=== PATIENT | male | born 1935 | race Hispanic/Latino ===

== ENCOUNTER 2017-08-22 05:50 | Inpatient (IN) | payer MEDICARE, BC ==
[2017-08-22] MEDS ORDERED: Sodium Chloride 0.9% 500 ML IV STA (06:03)
--- NOTE | 2017-08-22 06:07 | ED PDOC ---
Arrival/HPI <Po Mar - Last Filed: 08/22/17 17:07> <Jacobo Zambrano - Last Filed: 08/23/17 07:38> - General Time Seen by Provider: 08/22/17 05:52 - History of Present Illness Narrative History of Present Illness (Text): 08/22/17 06:04 81 yo male, hx of diverticulosis, copd, hyperlipidemia, presents with abdominal pain. pt states pain worse to b/l lower abdomen. pt states intermittent pain since yesterday which resolved after he took peptobismol. no fevers, no n/v/d, no urinary changes. no hematochezia, melena 08/22/17 06:06 (Jacobo Zambrano) Past Medical History - Provider Review Nursing Documentation Reviewed: Yes - Cardiac Hx Cardiac Disorders: Yes - Pulmonary Hx Respiratory Disorders: Yes Hx Asthma: Yes Hx Chronic Obstructive Pulmonary Disease (COPD): Yes - Neurological Hx Neurological Disorder: No - HEENT Hx HEENT Disorder: No - Renal Hx Renal Disorder: No - Endocrine/Metabolic Hx Endocrine Disorders: No - Hematological/Oncological Hx Blood Disorders: No - Integumentary Hx Dermatological Disorder: No - Musculoskeletal/Rheumatological Hx Musculoskeletal Disorders: Yes Hx Arthritis: Yes (right knee) Hx Back Pain: Yes - Gastrointestinal Hx Gastrointestinal Disorders: No - Genitourinary/Gynecological Hx Genitourinary Disorders: No - Psychiatric Hx Psychophysiologic Disorder: No Hx Substance Use: No - Surgical History Other/Comment: right knee <Jacobo Zambrano - Last Filed: 08/23/17 07:38> Family/Social History Family/Social History: No Known Family HX <Po Mar - Last Filed: 08/22/17 17:07> - Physician Review Nursing Documentation Reviewed: Yes Smoking Status: Former Smoker Hx Alcohol Use: Yes Frequency of alcohol use: Daily Hx Substance Use: No <Jacobo Zambrano - Last Filed: 08/23/17 07:38> Allergies/Home Meds <Po Mar - Last Filed: 08/22/17 17:07> <Jacobo Zambrano - Last Filed: 08/23/17 07:38> Allergies/Adverse Reactions: Allergies No Known Allergies Allergy (Verified 08/22/17 05:59) Home Medications: Home Meds Medication Instructions Recorded Confirmed Aspirin [Aspirin] 325 mg PO DAILY 04/15/16 08/22/17 Atorvastatin [Lipitor] 20 mg PO DAILY 04/15/16 08/22/17 Fluticasone/Salmeterol [Advair 1 each IH 08/22/17 250-50 Diskus] Multivit-Min/FA/Lycopen/Lutein 1 tab PO DAILY 08/22/17 08/22/17 [Centrum Silver Men Tablet] Review of Systems - Review of Systems Constitutional: Normal Eyes: Normal ENT: Normal Respiratory: Normal Cardiovascular: Normal Gastrointestinal: Abdominal Pain Genitourinary Male: Normal Musculoskeletal: Normal Skin: Normal Neurological: Normal Endocrine: Normal Hemo/Lymphatic: Normal Psychiatric: Normal <Jacobo Zambrano - Last Filed: 08/23/17 07:38> Physical Exam Temperature: Afebrile Blood Pressure: Normal Pulse: Regular Respiratory Rate: Normal Appearance: Positive for: Well-Appearing, Non-Toxic, Comfortable Pain Distress: None Mental Status: Positive for: Alert and Oriented X 3 - Systems Exam Head: Present: Atraumatic, Normocephalic Pupils: Present: PERRL Extroacular Muscles: Present: EOMI Conjunctiva: Present: Normal Mouth: Present: Moist Mucous Membranes Neck: Present: Normal Range of Motion Respiratory/Chest: Present: Clear to Auscultation, Good Air Exchange. No: Respiratory Distress, Accessory Muscle Use Cardiovascular: Present: Regular Rate and Rhythm, Normal S1, S2. No: Murmurs Abdomen: Present: Tenderness (mild, worse to llq), Normal Bowel Sounds. No: Distention, Peritoneal Signs, Rebound, Guarding Back: Present: Normal Inspection Upper Extremity: Present: Normal Inspection. No: Cyanosis, Edema Lower Extremity: Present: Normal Inspection. No: Edema Neurological: Present: GCS=15, CN II-XII Intact, Speech Normal Skin: Present: Warm, Dry, Normal Color. No: Rashes Psychiatric: Present: Alert, Oriented x 3, Normal Insight, Normal Concentration <Jacobo Zambrano - Last Filed: 08/23/17 07:38> Vital Signs Temp Pulse Pulse Resp BP Pulse Ox 08/22/17 12:07 98.2 F 96 H 16 139/70 96 08/22/17 12:04 96.0 F L 96 H 96 H 18 139/70 96 08/22/17 11:00 98 F 94 H 18 128/62 97 08/22/17 08:50 98.5 F 94 H 20 137/67 97 08/22/17 07:40 92 H 20 150/80 95 08/22/17 06:08 97.7 F 90 18 139/73 99 Medical Decision Making <AnanthAlek arevaloantionette Arriaga - Last Filed: 08/22/17 17:07> <Jacobo Zambrano - Last Filed: 08/23/17 07:38> ED Course and Treatment: 08/22/17 10:00 Progress Notes: 08/22/17 10:05 Patient's pain controlled. CT showed acute cholecystitis. Zosyn IV ordered. Ultrasound ordered. Spoke to Dr. Tate and he will accept the patient under his services. 08/22/17 10:10 Case discussed with surgical supply assistant Dr. Rios, who will come and evaluate the patient at bedside.and will inform Dr. Valdivia. I paged Dr. Gaxiola. As per Dr. Jaramillo he discussed case with Dr. Valdivia. ABD US: IMPRESSION: Fatty infiltration of the liver. Sludge in the gallbladder with mild wall thickening and pericholecystic fluid. Possible cholecystitis (ZaidPo Arriaga) 08/22/17 06:07 r/o diverticulitis, uti, colitis- labs imaging hydration reassess. pt declines any analgesia at this time. (Jacobo Zambrano) - Lab Interpretations Lab Results: 08/22/17 06:17 08/22/17 06:17 Lab Results 08/22/17 06:40: Direct Bilirubin 1.7 H 08/22/17 06:17: Sodium 139, Potassium 4.2, Chloride 105, Carbon Dioxide 26, Anion Gap 12, BUN 19, Creatinine 1.0, Est GFR ( Amer) > 60, Est GFR (Non- Af Amer) > 60, Random Glucose 171 H, Calcium 8.7, Total Bilirubin 2.7 H, AST 364 H, ALT 233 H, Alkaline Phosphatase 199 H, Total Protein 6.5, Albumin 3.8, Globulin 2.7, Albumin/Globulin Ratio 1.4, Lipase 33 08/22/17 06:17: PT 11.3, INR 1.03, APTT 24.5 L 08/22/17 06:17: WBC 8.9, RBC 4.59, Hgb 14.1, Hct 41.6 L, MCV 90.6, MCH 30.7, MCHC 33.9, RDW 13.8, Plt Count 168, MPV 9.9, Gran % 91.9 H, Lymph % (Auto) 5.6 L , [place] % (Auto) 2.0, Eos % (Auto) 0.4 L, Baso % (Auto) 0.1, Gran # 8.18 H, Lymph # 0.5 L, [place] # 0.2, Eos # 0.0, Baso # 0.01, Neutrophils % (Manual) 87 H, Band Neutrophils % 6 H, Lymphocytes % (Manual) 6 L, Monocytes % (Manual) 1, Platelet Evaluation Normal - RAD Interpretation Radiology Orders: 08/22/17 06:39 ABD & PELVIS IV CONTRAST ONLY [CT] Stat 08/22/17 09:01 ABDOMEN COMPLETE [US] Stat - Medication Orders Current Medication Orders: Metronidazole (Flagyl) 500 mg in 100 mls @ 100 mls/hr IVPB Q8 DENIZ PRN Reason: Protocol Last Admin: 08/23/17 05:35 Dose: 100 mls/hr eMAR Start Stop Document 08/23/17 05:35 [facility] (Rec: 08/23/17 05:36 [id number]) Intravenous Solution Start Date 08/23/17 Start Time 05:35 End Date 08/23/17 End time 06:35 Total Infusion Time 60 Ceftriaxone Sodium (Rocephin 1 Gram Ivpb) 1 gm in 100 mls @ 100 mls/hr IVPB DAILY [facility] PRN Reason: Protocol Last Admin: 08/22/17 12:31 Dose: 100 mls/hr eMAR Start Stop Document 08/22/17 12:31 LMN (Rec: 08/22/17 12:32 LMN [id number]) Intravenous Solution Start Date 08/22/17 Start Time 12:35 Sodium Chloride (Sodium Chloride 0.9%) 1,000 mls @ 125 mls/hr IV .Q8H [facility] Last Admin: 08/23/17 02:39 Dose: 125 mls/hr eMAR Start Stop Document 08/23/17 02:39 [facility] (Rec: 08/23/17 02:39 [id number]) Intravenous Solution Start Date 08/23/17 Start Time 02:39 Morphine Sulfate (Morphine) 2 mg IVP Q4 PRN PRN Reason: Pain, moderate (4-7) Pantoprazole Sodium (Protonix Inj) 40 mg IVP DAILY [facility] Last Admin: 08/22/17 12:31 Dose: 40 mg IVP Administration Document 08/22/17 12:31 LMN (Rec: 08/22/17 12:31 LMN [id number]) Charges for Administration # of IVP Administrations 1 Discontinued Medications Sodium Chloride (Sodium Chloride 0.9%) 500 mls @ 1,000 mls/hr IV .Q30M STA Stop: 08/22/17 06:32 Last Admin: 08/22/17 06:17 Dose: 1,000 mls/hr eMAR Start Stop Document 08/22/17 06:17 [facility] (Rec: 08/22/17 06:17 [facility] [id number]) Intravenous Solution Start Date 08/22/17 Start Time 06:17 End Date 08/22/17 End time 07:17 Total Infusion Time 60 Sodium Chloride (Sodium Chloride 0.9%) 1,000 mls @ 75 mls/hr IV .[id number] [facility] Last Admin: 08/22/17 10:57 Dose: 75 mls/hr eMAR Start Stop Document 08/22/17 10:57 [facility] (Rec: 08/22/17 10:57 MB [id number]) Intravenous Solution Start Date 08/22/17 Start Time 10:57 Piperacillin Sod/Tazobactam Sod (Zosyn 4.5 Gm In Ns 100ml) 4.5 gm in 100 mls @ 200 mls/hr IVPB STAT STA PRN Reason: Protocol Stop: 08/22/17 10:40 Last Admin: 08/22/17 11:04 Dose: 200 mls/hr eMAR Start Stop Document 08/22/17 11:04 MB (Rec: 08/22/17 11:04 MB [id number]) Intravenous Solution Start Date 08/22/17 Start Time 11:20 End Date 08/22/17 End time 12:20 Total Infusion Time 60 - Scribe Statement The provider has reviewed the documentation as recorded by the Scribe <Po Mar - Last Filed: 08/22/17 17:07> <Jacobo Zambrano - Last Filed: 08/23/17 07:38> - Scribe Statement Ros Robison Provider Scribe Attestation: All medical record entries made by the Scribe were at my direction and personally dictated by me. I have reviewed the chart and agree that the record accurately reflects my personal performance of the history, physical exam, medical decision making, and the department course for this patient. I have also personally directed, reviewed, and agree with the discharge instructions and disposition. (Po Mar) Disposition/Present on Arrival - Present on Arrival Any Indicators Present on Arrival: No - Disposition Have Diagnosis and Disposition been Completed?: Yes Disposition Time: 10:07 Patient Plan: Admission <Po Mar - Last Filed: 08/22/17 17:07> - Present on Arrival Any Indicators Present on Arrival: No History of DVT/PE: No History of Uncontrolled Diabetes: No Urinary Catheter: No History of Decub. Ulcer: No History Surgical Site Infection Following: None - Disposition Have Diagnosis and Disposition been Completed?: Yes <Jacobo Zambrano - Last Filed: 08/23/17 07:38> - Disposition Diagnosis: Acute cholecystitis Disposition: HOSPITALIZED Patient Problems: Current Active Problems Problem Status Onset Acute cholecystitis Acute Condition: GUARDED
[2017-08-22 06:23] LABS: BASO # 0.01 K/mm3 (0.0-2.0); BASO % 0.1 % (0.0-3.0); EOS % 0.4 % (1.5-5.0); GRAN # 8.18 (1.4-6.5); GRAN % 91.9 % (50.0-68.0); HEMATOCRIT 41.6 % (42.0-52.0); LYMPH # 0.5 (1.2-3.4); LYMPH % 5.6 % (22.0-35.0); MEAN CELL VOLUME 90.6 fl (80.0-105.0); MEAN CORPUSCULAR HEMOGLOBIN 30.7 pg (25.0-35.0); MEAN CORPUSCULAR HGB CONC 33.9 g/dl (31.0-37.0); MEAN PLATELET VOLUME 9.9 fl (7.0-11.0); MONO # 0.2 (0.1-0.6); PLATELET COUNT 168 10^3/uL (120.0-450.0); RED CELL DISTRIBUTION WIDTH 13.8 % (11.5-14.5); WHITE BLOOD COUNT 8.9 10^3/ul (4.5-11.0)
[2017-08-22 06:33] LABS: INR 1.03 (0.93-1.08); PARTIAL THROMBOPLASTIN TIME 24.5 Seconds (25.1-36.5)
[2017-08-22 06:39] LABS: ALB/GLOB RATIO 1.4 (1.1-1.8); ALKALINE PHOSPHATASE 199 U/L (38-126); ALT/SGPT 233 U/L (7-56); AST/SGOT 364 U/L (17-59); BILIRUBIN,TOTAL 2.7 mg/dL (0.2-1.3); BLOOD UREA NITROGEN 19 mg/dL (7-21); CALCIUM 8.7 mg/dL (8.4-10.5); CARBON DIOXIDE 26 mmol/L (21-33); CHLORIDE 105 mmol/L (98-107); GFR AFRICAN-AMERICAN > 60; GLUCOSE,RANDOM 171 mg/dL (70-110); LIPASE 33 U/L (23-300); POTASSIUM 4.2 mmol/L (3.6-5.0); SODIUM 139 mmol/L (132-148); TOTAL PROTEIN 6.5 g/dL (5.8-8.3)
[2017-08-22 06:51] LABS: BAND 6 % (0-2); NEUTROPHIL 87 % (50.0-70.0)
[2017-08-22 06:52] LABS: PLATELET ESTIMATE NORMAL (NORMAL)
--- NOTE | 2017-08-22 08:53 | CT ---
PROCEDURE: CT Abdomen and Pelvis with contrast HISTORY: lower abd pain COMPARISON: Abdomen pelvis CT without contrast dated 04/15/2016. TECHNIQUE: Contrast dose: None Radiation dose: Total exam DLP = 1118.71 mGy-cm. This CT exam was performed using one or more of the following dose reduction techniques: Automated exposure control, adjustment of the mA and/or kV according to patient size, and/or use of iterative reconstruction technique. FINDINGS: LOWER THORAX: Mild COPD changes are appreciated at the bilateral bases. A small hiatal hernia is identified. LIVER: A stable 2.3 cm cyst is seen at the watershed portion of the dome liver with remainder of the liver otherwise for even smaller lucency near the distal inferior vena cava too small to characterize. GALLBLADDER AND BILE DUCTS: Mural thickening and pericholecystic fluid collection is suspicious for potential cystitis. This may reflect a calculus cholecystitis as no radiodense calculi seen related the loosing calculi not excluded. Common bile duct appears normal caliber overall. PANCREAS: Pancreas is again seen be partially fat replaced and otherwise unremarkable. SPLEEN: Unremarkable. ADRENALS: Unremarkable. No mass. KIDNEYS AND URETERS: Some small parapelvic cysts are seen in the mid to lower pole left kidney and there is a tiny parenchymal lucency seen at the right kidney too small characterize. No obstructive uropathy bilaterally. VASCULATURE: Unremarkable. No aortic aneurysm. BOWEL: Extensive sigmoid diverticulosis is appreciated without acute changes once again. No bowel obstruction or gross mural thickening. Lack of adequate oral contrast material limits interpretation. Under opacified small bowel loops appear unremarkable grossly. APPENDIX: Normal appendix. PERITONEUM: Unremarkable. No free fluid. No free air. LYMPH NODES: Unremarkable. No enlarged lymph nodes. BLADDER: Unremarkable. REPRODUCTIVE: Enlarged prostate gland again noted. BONES: Advanced multilevel thoracolumbar spondylosis. OTHER FINDINGS: Left inguinal hernia is again seen containing only fat. IMPRESSION: 1. But suspicious for cholecystitis, potentially acalculus. No evidence to suggest biliary tree dilatation. Clinically correlate further. 2. Prominent sigmoid diverticulosis without diverticulitis. 3. Small hepatic cyst appears stable. An additional smaller hepatic lucency near the dome approaching the vena cava is remains too small to characterize. 4. Enlarged prostate gland again evident.
[2017-08-22] MEDS ORDERED: Morphine 2 mg/ml ISec IVP PRN (10:10)
[2017-08-22] MEDS ORDERED: Piperacill/Tazo 4.5gm in NS 4.5 GM/100 ML BAG IVPB STA (10:11)
[2017-08-22] MEDS ORDERED: Sodium Chloride 0.9% 1,000 ML IV SCH (10:15)
[2017-08-22] MEDS: cefTRIAXone 1 gm 1 GM/100 ML BAG IVPB SCH (12:31)
[2017-08-22 13:10] VITALS: BMI 26.8
--- NOTE | 2017-08-22 13:20 | CP.PCM.CON ---
<Merced Martinez - Last Filed: 08/22/17 13:20> History of Present Illness - History of Present Illness History of Present Illness: Seen and examined at the bedside earlier today in the ER, the chart was reviewed. Request for GI consult is for acute cholecystitis. HPI: This is a 81-year-old male who was seen in the ER with his at the bedside came to the emergency room with complaints of abdominal pain. The patient reported that started yesterday, he has pain mid abdomen he took 3 doses of Pepto-Bismol with relief. The patient reports that he never had any pain like this before He did complain of feeling clammy , no chills. He did have episodes of nausea, no vomiting. Denies any previous history of cholelithiasis. Denies weight loss, or loss of appetite. denies SOB or chest pain. He never had endoscopy or colonoscopy. On admission he had CT scan of abdomen and pelvis with only IV contrast which showed pericholecystic fluid in the gallbladder, suspicious for cholecystitis no biliary dilatation, and hepatic cysts. He is also found to have diverticulosis but no evidence of diverticulitis. He also had an abdominal ultrasound which the results are pending. The patient is also noted to have elevated liver enzymes. Past medical history: COPD, asthma, diverticulosis, hyperlipidemia, arthritis Surgical history: Right knee surgery, cardiac catheterization , no stents, denies abdominal surgery Family history: Mother with cancer, unknown Allergies: No known drug allergies Medications: Reviewed as per MAR Social history: Former smoker, admits to drinking 2-3 minutes in cocktails daily , denies substance abuse ROS: Systems reviewed with positive findings see HPI Past Patient History - Past Social History Smoking Status: Former Smoker - CARDIAC Hx Cardiac Disorders: Yes - PULMONARY Hx Respiratory Disorders: Yes Hx Asthma: Yes Hx Chronic Obstructive Pulmonary Disease (COPD): Yes - NEUROLOGICAL Hx Neurological Disorder: No - HEENT Hx HEENT Problems: No - RENAL Hx Chronic Kidney Disease: No - ENDOCRINE/METABOLIC Hx Endocrine Disorders: No - HEMATOLOGICAL/ONCOLOGICAL Hx Blood Disorders: No - INTEGUMENTARY Hx Dermatological Problems: No - MUSCULOSKELETAL/RHEUMATOLOGICAL Hx Musculoskeletal Disorders: Yes Hx Arthritis: Yes (right knee) Hx Back Pain: Yes - GASTROINTESTINAL Hx Gastrointestinal Disorders: No - GENITOURINARY/GYNECOLOGICAL Hx Genitourinary Disorders: No - PSYCHIATRIC Hx Psychophysiologic Disorder: No Hx Substance Use: No - SURGICAL HISTORY Other/Comment: right knee Meds Allergies/Adverse Reactions: Allergies Allergy/AdvReac Type Severity Reaction Status Date / Time No Known Allergies Allergy Verified 08/22/17 05:59 - Medications Medications: Current Medications Sodium Chloride (Sodium Chloride 0.9%) 1,000 mls @ 75 mls/hr IV .A81H29H [facility] Last Admin: 08/22/17 10:57 Dose: 75 mls/hr Metronidazole (Flagyl) 500 mg in 100 mls @ 100 mls/hr IVPB Q8 DENIZ PRN Reason: Protocol Ceftriaxone Sodium (Rocephin 1 Gram Ivpb) 1 gm in 100 mls @ 100 mls/hr IVPB DAILY DENIZ PRN Reason: Protocol Last Admin: 08/22/17 12:31 Dose: 100 mls/hr Morphine Sulfate (Morphine) 2 mg IVP Q4 PRN PRN Reason: Pain, moderate (4-7) Pantoprazole Sodium (Protonix Inj) 40 mg IVP DAILY [facility] Last Admin: 08/22/17 12:31 Dose: 40 mg Physical Exam - Constitutional Appears: No Acute Distress - Head Exam Head Exam: NORMOCEPHALIC - Eye Exam Eye Exam: Normal appearance. absent: Scleral icterus - ENT Exam ENT Exam: Mucous Membranes Moist - Neck Exam Neck exam: Positive for: Normal Inspection - Respiratory Exam Respiratory Exam: Decreased Breath Sounds, NORMAL BREATHING PATTERN. absent: Rales, Wheezes, Respiratory Distress - Cardiovascular Exam Cardiovascular Exam: +S1, +S2 - GI/Abdominal Exam GI & Abdominal Exam: Normal Bowel Sounds, Soft, Tenderness (mid abdomen/right quaderant). absent: Guarding, Organomegaly, Rebound - Extremities Exam Extremities exam: Positive for: pedal pulses present - Neurological Exam Neurological exam: Alert, Oriented x3 - Skin Skin Exam: Dry, Warm Results - Vital Signs Recent Vital Signs: Last Vital Signs Temp 98.2 F 08/22/17 12:07 Pulse 96 H 08/22/17 12:07 Resp 16 08/22/17 12:07 BP 139/70 08/22/17 12:07 Pulse Ox 96 08/22/17 12:07 - Labs Result Diagrams: 08/22/17 06:17 08/22/17 06:17 Assessment & Plan - Assessment and Plan (Free Text) Assessment: Assessment: Abdominal pain, rule out acute cholecystitis Diverticulosis without evidence of diverticulitis Transaminitis, rule out any CBD stones COPD Plan: Request for MRCP without contrast Pending HIDA scan Follow-up abdominal ultrasound report GI prophylaxis, IV daily Nothing by mouth Surgical follow-up Start IV antibiotics with ceftriaxone and Rocephin,see orders Trend LFTs pain mgt Request for hepatitis panel Thank you for this consultation for us to participate in your patient's care, further recommendations based upon clinical course. Seen and discussed with . <Shona Lyn V - Last Filed: 08/22/17 20:47> Meds - Medications Medications: Current Medications Metronidazole (Flagyl) 500 mg in 100 mls @ 100 mls/hr IVPB Q8 DENIZ PRN Reason: Protocol Last Admin: 08/22/17 18:33 Dose: 100 mls/hr Ceftriaxone Sodium (Rocephin 1 Gram Ivpb) 1 gm in 100 mls @ 100 mls/hr IVPB DAILY DENIZ PRN Reason: Protocol Last Admin: 08/22/17 12:31 Dose: 100 mls/hr Sodium Chloride (Sodium Chloride 0.9%) 1,000 mls @ 125 mls/hr IV .Q8H DENIZ Last Admin: 08/22/17 18:33 Dose: 125 mls/hr Morphine Sulfate (Morphine) 2 mg IVP Q4 PRN PRN Reason: Pain, moderate (4-7) Pantoprazole Sodium (Protonix Inj) 40 mg IVP DAILY [facility] Last Admin: 08/22/17 12:31 Dose: 40 mg Results - Vital Signs Recent Vital Signs: Last Vital Signs Temp 99.1 F 08/22/17 17:30 Pulse 79 08/22/17 17:30 Resp 16 08/22/17 17:30 BP 136/73 08/22/17 17:30 Pulse Ox 97 08/22/17 17:30 - Labs Result Diagrams: 08/22/17 06:17 08/22/17 15:45 Labs: Laboratory Results - last 24 hr 08/22/17 08/22/17 13:30 15:45 Sodium 139 Potassium 3.9 Chloride 106 Carbon Dioxide 26 Anion Gap 11 BUN 19 Creatinine 1.2 Est GFR ( Amer) > 60 Est GFR (Non-Af Amer) 58 Random Glucose 127 H Calcium 8.2 L Total Bilirubin 5.0 H AST 1241 H ALT 1130 H Alkaline Phosphatase 230 H Total Protein 6.1 Albumin 3.5 Globulin 2.6 Albumin/Globulin Ratio 1.3 Hepatitis A IgM Ab Negative Hep Bs Antigen Negative Hep B Core IgM Ab Negative Hepatitis C Antibody Negative Attending/Attestation - Attestation I have personally seen and examined this patient.: Yes I have fully participated in the care of the patient.: Yes I have reviewed all pertinent clinical information: Yes Notes (Text): This is an addendum to GI consult report dictated by Merced Martinez APN.The patient was seen and examined earlier. Medical records, lab studies, imagings were reviewed. Last 24 hours events reviewed. Agreed with the above treatment plan as outlined in Merced Martinez APN's notes the with the addition of the following Still complains of abdominal pain epigastric and right upper quadrant area CT sonogram reviewed Patient has a large amount of sludge in the gallbladder with a thickened wall with pericholecystic fluid Clinically suggestive for acute cholecystitis Had a scan report wasn't particularly reviewed and discussed with Dr. Harrison MRI scan ordered could not be done as the patient is claustrophobic and refuses it In view of the significant elevation of the LFTs tend it is reasonable to do an endoscopy and ultrasound to further evaluate and a possible ERCP if needed 08/22/17 20:44
--- NOTE | 2017-08-22 13:47 | CP.PCM.HP ---
<Shazia Jones - Last Filed: 08/22/17 15:04> History of Present Illness - History of Present Illness History of Present Illness: PGY-2 h&p [address] Jaramillo 81 year old male with past medical history of diverticulosis, copd, hyperlipidemia presents with abdominal pain. Patient states that the pain started after he ate a tune sandwich during lunch yesterday. The pain is intermittent sharp pain, located bilateral lower quadrants of the abdomin. Pain does not radiate. Patient states that pain improved after he took peptobismol and tums but returned. He denies previous episodes or sick contacts. He denies fevers, chill, nausea, vomiting, diarrhea, constipation, urinary changes, hematochezia, melena. past medical history: diverticulosis, copd, hyperlipidemia Past surgical history: right knee repair social history: former smoker, quit 27 yo 2-3ppd, drink 2-3 cocktails per day, denies illicit drug use family history: mother 86 unknown cancer, father 79 of Parkinson allergy: NKDA home Medications: centrum silver, lipitor, asa, advair Present on Admission - Present on Admission Any Indicators Present on Admission: No Review of Systems - Constitutional Constitutional: absent: Fatigue, Fever, Headache, Lethargy, Weakness - EENT Eyes: absent: Change in Vision Nose/Mouth/Throat: absent: Nasal Congestion, Nasal Discharge, Sore Throat - Cardiovascular Cardiovascular: absent: Chest Pain, Dyspnea, Edema, Leg Edema, Palpitations - Respiratory Respiratory: Cough (chronic, dry ). absent: Dyspnea, Hemoptysis - Gastrointestinal Gastrointestinal: Abdominal Pain. absent: Constipation, Diarrhea, Melena, Nausea, Vomiting - Genitourinary Genitourinary: absent: Difficulty Urinating, Dysuria, Hematuria, Pyuria - Musculoskeletal Musculoskeletal: Back Pain (chronic). absent: Arthralgias, Myalgias, Neck Pain , Numbness, Tingling - Neurological Neurological: absent: Dizziness, Numbness, Headaches, Syncope, Weakness - Hematologic/Lymphatic Hematologic: absent: Easy Bleeding, Easy Bruising Past Patient History - Past Social History Smoking Status: Former Smoker - CARDIAC Hx Cardiac Disorders: Yes - PULMONARY Hx Respiratory Disorders: Yes Hx Asthma: Yes Hx Chronic Obstructive Pulmonary Disease (COPD): Yes - NEUROLOGICAL Hx Neurological Disorder: No - HEENT Hx HEENT Problems: No - RENAL Hx Chronic Kidney Disease: No - ENDOCRINE/METABOLIC Hx Endocrine Disorders: No - HEMATOLOGICAL/ONCOLOGICAL Hx Blood Disorders: No - INTEGUMENTARY Hx Dermatological Problems: No - MUSCULOSKELETAL/RHEUMATOLOGICAL Hx Musculoskeletal Disorders: Yes Hx Arthritis: Yes (right knee) Hx Back Pain: Yes - GASTROINTESTINAL Hx Gastrointestinal Disorders: No - GENITOURINARY/GYNECOLOGICAL Hx Genitourinary Disorders: No - PSYCHIATRIC Hx Psychophysiologic Disorder: No Hx Substance Use: No - SURGICAL HISTORY Other/Comment: right knee - ANESTHESIA Hx Anesthesia: Yes Hx Anesthesia Reactions: No Meds Allergies/Adverse Reactions: Allergies Allergy/AdvReac Type Severity Reaction Status Date / Time No Known Allergies Allergy Verified 08/22/17 05:59 Physical Exam - Constitutional Appears: Well, No Acute Distress - Head Exam Head Exam: ATRAUMATIC, NORMAL INSPECTION, NORMOCEPHALIC - Eye Exam Eye Exam: EOMI, Normal appearance - ENT Exam ENT Exam: Mucous Membranes Moist - Respiratory Exam Respiratory Exam: Clear to Auscultation Bilateral, NORMAL BREATHING PATTERN. absent: Decreased Breath Sounds, Rales, Rhonchi, Wheezes, Respiratory Distress - Cardiovascular Exam Cardiovascular Exam: REGULAR RHYTHM, +S1, +S2. absent: Tachycardia, Diastolic murmur, Systolic Murmur - GI/Abdominal Exam GI & Abdominal Exam: Normal Bowel Sounds, Soft, Tenderness (mild lower quadrants ). absent: Distended, Firm - Extremities Exam Extremities exam: Positive for: normal inspection. Negative for: pedal edema, tenderness - Neurological Exam Neurological exam: Alert, Oriented x3 - Psychiatric Exam Psychiatric exam: Normal Affect, Normal Mood - Skin Skin Exam: Dry, Intact, Normal Color, Warm Results - Vital Signs Recent Vital Signs: Last Vital Signs Temp 98.2 F 08/22/17 12:07 Pulse 96 H 08/22/17 12:07 Resp 16 08/22/17 12:07 BP 139/70 08/22/17 12:07 Pulse Ox 96 08/22/17 12:07 - Labs Result Diagrams: 08/22/17 06:17 08/22/17 06:17 Assessment & Plan - Assessment and Plan (Free Text) Assessment: 81 year old male with past medical history of diverticulosis, copd, hyperlipidemia presents with abdominal pain, most likely secondary to cholecystitis. CT abd/pelvis reviewed impression of suspicious cholecystitis, potentially acalculus, no evidence to suggest biliary tree dilatation. Plan: 1. abd pain 2/2 to most likely cholecystitis - CT abd/pel reviewed impression of suspicious cholecystitis, potentially acalculus, no evidence to suggest biliary tree dilatation. (refer to report) - labs reviewed, elevated LFTs most likely due to cholecystitis - abd US, official read pending - HIDA scan ordered - hepatitis panel ordered - NPO, IVF NS AT 75ml/hr - zosyn given in ED, started on cetriaxone and metronidazole - protonix daily - stop lipitor - morphine for pain control - surgery consulted - GI consulted 2. history of COPD - denies sob - will cont to monitor - will start duoneb if needed <Freedom Jaramillo S - Last Filed: 08/22/17 17:42> Results - Vital Signs Recent Vital Signs: Last Vital Signs Temp 98.8 F 08/22/17 16:00 Pulse 80 08/22/17 16:00 Resp 20 08/22/17 16:00 BP 128/67 08/22/17 16:00 Pulse Ox 97 08/22/17 16:00 - Labs Result Diagrams: 08/22/17 06:17 08/22/17 15:45 Labs: Laboratory Results - last 24 hr 08/22/17 08/22/17 13:30 15:45 Sodium 139 Potassium 3.9 Chloride 106 Carbon Dioxide 26 Anion Gap 11 BUN 19 Creatinine 1.2 Est GFR ( Amer) > 60 Est GFR (Non-Af Amer) 58 Random Glucose 127 H Calcium 8.2 L Total Bilirubin 5.0 H AST 1241 H ALT 1130 H Alkaline Phosphatase 230 H Total Protein 6.1 Albumin 3.5 Globulin 2.6 Albumin/Globulin Ratio 1.3 Hepatitis A IgM Ab Negative Hep Bs Antigen Negative Hep B Core IgM Ab Negative Hepatitis C Antibody Negative Assessment & Plan - Assessment and Plan (Free Text) Plan: Pt seen and examined. Agree with above note of medical office assistant. Labs and meds reviewed. Spoke to Surgery. Spoke to Dr Chapa. Abd pain most likely secondary to cholecystitis. IVF. Spoke to at the bedside.
--- NOTE | 2017-08-22 13:49 | CP.PCM.CON ---
History of Present Illness - History of Present Illness History of Present Illness: General Surgery consult note for Dr. Rubin HPI: Pt is a 81 y/o male w/ PMHx of HLD comes into the ED for a constant sharp abd pain which started yesterday afternoon after he ate a tuna salad sandwich. Pt stated that he took peptobismol which helped with the pain, but worsened again at 3am which woke him up from sleep. Pt denies any radiation of pain, and rated the pain as a 9/10 at it's worst. Denies F/C/N/V/D/Cp/SOB/hematuria/ dysuria/hematemesis/sick contact. Pt drinks 2-3 etOH every day. Surgery is consulted to evaluate for cholecystitis. PMHx: HLD, COPD PSHx: meniscus repair on the right knee SS: EtOh,former smoker Review of Systems - Review of Systems Review of Systems: See HPI Past Patient History - Past Social History Smoking Status: Former Smoker - CARDIAC Hx Cardiac Disorders: Yes - PULMONARY Hx Respiratory Disorders: Yes Hx Asthma: Yes Hx Chronic Obstructive Pulmonary Disease (COPD): Yes - NEUROLOGICAL Hx Neurological Disorder: No - HEENT Hx HEENT Problems: No - RENAL Hx Chronic Kidney Disease: No - ENDOCRINE/METABOLIC Hx Endocrine Disorders: No - HEMATOLOGICAL/ONCOLOGICAL Hx Blood Disorders: No - INTEGUMENTARY Hx Dermatological Problems: No - MUSCULOSKELETAL/RHEUMATOLOGICAL Hx Musculoskeletal Disorders: Yes Hx Arthritis: Yes (right knee) Hx Back Pain: Yes - GASTROINTESTINAL Hx Gastrointestinal Disorders: No - GENITOURINARY/GYNECOLOGICAL Hx Genitourinary Disorders: No - PSYCHIATRIC Hx Psychophysiologic Disorder: No Hx Substance Use: No - SURGICAL HISTORY Other/Comment: right knee - ANESTHESIA Hx Anesthesia: Yes Hx Anesthesia Reactions: No Meds Allergies/Adverse Reactions: Allergies Allergy/AdvReac Type Severity Reaction Status Date / Time No Known Allergies Allergy Verified 08/22/17 05:59 - Medications Medications: Current Medications Sodium Chloride (Sodium Chloride 0.9%) 1,000 mls @ 75 mls/hr IV .[id number] [facility] Last Admin: 08/22/17 10:57 Dose: 75 mls/hr Metronidazole (Flagyl) 500 mg in 100 mls @ 100 mls/hr IVPB Q8 DENIZ PRN Reason: Protocol Ceftriaxone Sodium (Rocephin 1 Gram Ivpb) 1 gm in 100 mls @ 100 mls/hr IVPB DAILY DENIZ PRN Reason: Protocol Last Admin: 08/22/17 12:31 Dose: 100 mls/hr Morphine Sulfate (Morphine) 2 mg IVP Q4 PRN PRN Reason: Pain, moderate (4-7) Pantoprazole Sodium (Protonix Inj) 40 mg IVP DAILY [facility] Last Admin: 08/22/17 12:31 Dose: 40 mg Physical Exam - Constitutional Appears: No Acute Distress - Head Exam Head Exam: ATRAUMATIC, NORMAL INSPECTION, NORMOCEPHALIC - Eye Exam Eye Exam: EOMI, Normal appearance, PERRL Pupil Exam: NORMAL ACCOMODATION, PERRL - ENT Exam ENT Exam: Mucous Membranes Moist, Normal Exam - Neck Exam Neck exam: Positive for: Normal Inspection - Respiratory Exam Respiratory Exam: Clear to Auscultation Bilateral, NORMAL BREATHING PATTERN - Cardiovascular Exam Cardiovascular Exam: REGULAR RHYTHM - GI/Abdominal Exam GI & Abdominal Exam: Normal Bowel Sounds, Soft, Tenderness. absent: Distended, Firm, Guarding, Hernia, Rigid Additional comments: TTP - Extremities Exam Extremities exam: Positive for: normal inspection - Back Exam Back exam: NORMAL INSPECTION - Neurological Exam Neurological exam: Alert, CN II-XII Intact, Normal Gait, Oriented x3, Reflexes Normal - Psychiatric Exam Psychiatric exam: Normal Affect, Normal Mood - Skin Skin Exam: Dry, Intact, Normal Color, Warm Results - Vital Signs Recent Vital Signs: Last Vital Signs Temp 98.2 F 08/22/17 12:07 Pulse 96 H 08/22/17 12:07 Resp 16 08/22/17 12:07 BP 139/70 08/22/17 12:07 Pulse Ox 96 08/22/17 12:07 - Labs Result Diagrams: 08/22/17 06:17 08/22/17 06:17 Assessment & Plan - Assessment and Plan (Free Text) Assessment: Cholelithiasis US: GB sludge, wall thickening LFT elevated -F/U HIDA -F/U MRCP -GI on board -NPO -Pain control -Medical managment -IVF Dr. Valdivia
--- NOTE | 2017-08-22 13:58 | US ---
HISTORY: abd pain r/o cholecytisitis COMPARISON: None. TECHNIQUE: Sonographic evaluation of the abdomen. FINDINGS: LIVER: Measures 20.2 cm. Increased echogenicity of the liver parenchyma. No mass. No intrahepatic bile duct dilatation. 2 cm simple cyst GALLBLADDER: Layering sludge in the gallbladder. There is a small amount of pericholecystic fluid. There is mild gallbladder wall thickening measuring 3 mm. COMMON BILE DUCT: Measures 6.2 mm. No stones. No dilatation. PANCREAS: Unremarkable as visualized. No mass. No ductal dilatation. RIGHT KIDNEY: Measures 10.9 x 5.1 x 6.4cm. Normal echogenicity. No calculus, mass, or hydronephrosis. LEFT KIDNEY: Measures 11.5 x 5.1 x 7 point ofcm. Normal echogenicity. No calculus, mass, or hydronephrosis. SPLEEN: Normal in size and contour. No mass. AORTA: No aneurysmal dilatation. IVC: Unremarkable. OTHER FINDINGS: None. IMPRESSION: Fatty infiltration of the liver. Sludge in the gallbladder with mild wall thickening and pericholecystic fluid. Possible cholecystitis
[2017-08-22 16:04] LABS: ALB/GLOB RATIO 1.3 (1.1-1.8); ALKALINE PHOSPHATASE 230 U/L (38-126); BLOOD UREA NITROGEN 19 mg/dL (7-21); CALCIUM 8.2 mg/dL (8.4-10.5); CARBON DIOXIDE 26 mmol/L (21-33); CHLORIDE 106 mmol/L (98-107); GFR AFRICAN-AMERICAN > 60; GLUCOSE,RANDOM 127 mg/dL (70-110); POTASSIUM 3.9 mmol/L (3.6-5.0); SODIUM 139 mmol/L (132-148); TOTAL PROTEIN 6.1 g/dL (5.8-8.3)
[2017-08-22 16:11] LABS: ALT/SGPT 1130 U/L (7-56); AST/SGOT 1241 U/L (17-59)
[2017-08-22] MEDS ORDERED: Bupivacaine 0.5% Inj(30mL) ONE (16:47)
[2017-08-22] MEDS ORDERED: Iohexol 240 (50 ml) ONE (16:47)
--- NOTE | 2017-08-22 17:16 | NM ---
PROCEDURE: Nuclear Medicine Hepatobiliary Scan HISTORY: Acute cholecystitis COMPARISON: August 22, 2017. Abdominal ultrasound and CT scan TECHNIQUE: 6.0 mCi of technetium 99m Mebrofenin was administered intravenously. Planar images of the abdomen were obtained at 5 min intervals to 60 mins. Delayed images were also obtained. FINDINGS: LIVER: Timely and homogenous uptake. COMMON BILE DUCT: Not identified at 3 hours GALLBLADDER: Not identified at 03:00 SMALL BOWEL: Not identified at 03:00 IMPRESSION: Abnormal hepatobiliary scan with nonvisualization of the common bile duct, small bowel, gallbladder. The findings therefore consistent with suspected acute cholecystitis. Less likely consideration would be severe hepatocellular disease resulting in nonvisualization of the bile ducts and gallbladder. However, my review of the recent abdominal ultrasound and CT scan is more consistent with acute cholecystitis
[2017-08-22] MEDS: metroNIDAZOLE IV 500 mg/100 ml 500 MG/100 ML BAG IVPB SCH ×2 (18:33→22:51)
[2017-08-22] MEDS: Sodium Chloride 0.9% 1,000 ML IV SCH (18:33)
--- NOTE | 2017-08-22 20:56 | CARD ---
APPROVED REPORT EKG Measurement Heart [id number] <Conclusion> Sinus rhythm with occasional premature ventricular complexes and premature atrial complexes Otherwise normal ECG
[2017-08-23] MEDS: Sodium Chloride 0.9% 1,000 ML IV SCH ×2 (02:39→18:53)
[2017-08-23 04:21] LABS: BASO # 0.02 K/mm3 (0.0-2.0); BASO % 0.3 % (0.0-3.0); EOS # 0.1 (0.0-0.7); EOS % 0.9 % (1.5-5.0); GRAN # 5.19 (1.4-6.5); GRAN % 76.8 % (50.0-68.0); HEMATOCRIT 37.7 % (42.0-52.0); LYMPH # 0.8 (1.2-3.4); LYMPH % 11.3 % (22.0-35.0); MEAN CELL VOLUME 91.1 fl (80.0-105.0); MEAN CORPUSCULAR HEMOGLOBIN 30.2 pg (25.0-35.0); MEAN CORPUSCULAR HGB CONC 33.2 g/dl (31.0-37.0); MONO # 0.7 (0.1-0.6); MONO % 10.7 % (1.0-6.0); RED CELL DISTRIBUTION WIDTH 14.4 % (11.5-14.5); WHITE BLOOD COUNT 6.8 10^3/ul (4.5-11.0)
[2017-08-23 04:29] LABS: ALB/GLOB RATIO 1.2 (1.1-1.8); ALKALINE PHOSPHATASE 203 U/L (38-126); ALT/SGPT 869 U/L (7-56); AST/SGOT 704 U/L (17-59); BLOOD UREA NITROGEN 17 mg/dL (7-21); CALCIUM 8.1 mg/dL (8.4-10.5); CARBON DIOXIDE 25 mmol/L (21-33); CHLORIDE 109 mmol/L (98-107); GFR AFRICAN-AMERICAN > 60; GLUCOSE,RANDOM 101 mg/dL (70-110); LIPASE 19 U/L (23-300); SODIUM 141 mmol/L (132-148); TOTAL PROTEIN 5.8 g/dL (5.8-8.3)
[2017-08-23 04:32] LABS: AMYLASE < 30 U/L (35-125)
[2017-08-23 04:33] LABS: INR 1.28 (0.93-1.08)
[2017-08-23] MEDS: metroNIDAZOLE IV 500 mg/100 ml 500 MG/100 ML BAG IVPB SCH ×3 (05:35→21:05)
[2017-08-23] MEDS ORDERED: Iohexol 240 (50 ml) ONE (06:46)
[2017-08-23] MEDS ORDERED: Propofol 10 mg/ml Inj (20 ML) ONE (08:14)
[2017-08-23] MEDS ORDERED: Lidocaine 2% Inj (20ml) ONE (08:15)
[2017-08-23] MEDS ORDERED: Succinylcholine 200 mg/10 ml Inj IV ONE (08:18)
[2017-08-23] MEDS ORDERED: Rocuronium 10 mg/ml (5 ml) ONE (08:36)
[2017-08-23] MEDS: Indomethacin 50 MG Suppository PR ONE ×2 (11:16→13:57)
--- NOTE | 2017-08-23 11:29 | RAD ---
PROCEDURE: ERCP HISTORY: STENT INSERTION COMPARISON: TECHNIQUE: Fluoroscopy was provided in the endoscopy suite. 253 seconds of fluoro time were use. Two images were submitted showing placement of a common duct stent FINDINGS: IMPRESSION: As above
[2017-08-23] MEDS: cefTRIAXone 1 gm 1 GM/100 ML BAG IVPB SCH (11:39)
--- NOTE | 2017-08-23 12:37 | CP.PCM.PN ---
Subjective - Date & Time of Evaluation Date of Evaluation: 08/23/17 Time of Evaluation: 07:30 - Subjective Subjective: Surgery progress note for Dr. Valdivia Patient seen and examined at bedside. Patient resting comfortably in bed with no new complaints at this time. Patient says his abdominal pain has significantly improved. Patient is ambulating and having normal BMs. Patient denies N&V, diarrhea, constipation, fever, chills, and calf pain. Objective - Vital Signs/Intake and Output Vital Signs (last 24 hours): Temp Pulse Resp BP Pulse Ox 98.4 F 73 24 151/84 H 95 08/23/17 11:25 08/23/17 11:25 08/23/17 11:25 08/23/17 11:25 08/23/17 11:25 Intake and Output: 08/23/17 08/23/17 06:59 18:59 Intake Total 1450 Output Total 2 Balance 1448 - Medications Medications: Current Medications Metronidazole (Flagyl) 500 mg in 100 mls @ 100 mls/hr IVPB Q8 DENIZ PRN Reason: Protocol Last Admin: 08/23/17 05:35 Dose: 100 mls/hr Ceftriaxone Sodium (Rocephin 1 Gram Ivpb) 1 gm in 100 mls @ 100 mls/hr IVPB DAILY DENIZ PRN Reason: Protocol Last Admin: 08/23/17 11:39 Dose: 100 mls/hr Sodium Chloride (Sodium Chloride 0.9%) 1,000 mls @ 100 mls/hr IV .Q10H [facility]IZ Morphine Sulfate (Morphine) 2 mg IVP Q4 PRN PRN Reason: Pain, moderate (4-7) Pantoprazole Sodium (Protonix Inj) 40 mg IVP DAILY [facility] Last Admin: 08/23/17 11:38 Dose: 40 mg - Labs Labs: 08/23/17 04:05 08/23/17 04:05 PT 14.2 SECONDS (9.4-12.5) H 08/23/17 04:05 INR 1.28 (0.93-1.08) H 08/23/17 04:05 APTT 27.0 Seconds (25.1-36.5) 08/23/17 04:05 - Constitutional Appears: Non-toxic, No Acute Distress - Head Exam Head Exam: NORMAL INSPECTION - Eye Exam Eye Exam: EOMI - ENT Exam ENT Exam: Mucous Membranes Moist - Respiratory Exam Respiratory Exam: NORMAL BREATHING PATTERN. absent: Accessory Muscle Use, Wheezes, Respiratory Distress - Cardiovascular Exam Cardiovascular Exam: REGULAR RHYTHM. absent: Bradycardia, Tachycardia - GI/Abdominal Exam GI & Abdominal Exam: Distended (mild ), Soft, Tenderness (mildly tender to palpation in epigastric region ). absent: Guarding, Rebound - Neurological Exam Neurological Exam: Alert, Awake - Psychiatric Exam Psychiatric exam: Normal Affect, Normal Mood - Skin Skin Exam: Dry, Intact, Normal Color, Warm Assessment and Plan - Assessment and Plan (Free Text) Assessment: 81M with biliary dyskinesia and cholangitis HIDA: no flow into the ducts EUS: thickened CBD wall (1.3 mm) with CBD sludge, CBD 6.8mm ERCP with CBD stent placement Plan: - antibiotics - analgesics - IV fluids @100 - NPO except sips and chips - monitor LFTs and Bilirubin - GI consulted, recs appreciated - will discuss with Dr. Skip Campos, PGY1
--- NOTE | 2017-08-23 13:28 | CP.PCM.PN ---
<Shazia Jones - Last Filed: 08/23/17 13:41> Subjective - Date & Time of Evaluation Date of Evaluation: 08/23/17 Time of Evaluation: 13:41 - Subjective Subjective: PGY-[address] Jaramillo Patient seen and examined at bedside. No acute distress. Patient is resting comfortably. Patient states abd pain has resolved. He denies chest pain, sob. nausea and vomiting. Objective - Vital Signs/Intake and Output Vital Signs (last 24 hours): Temp Pulse Resp BP Pulse Ox 98.4 F 73 24 151/84 H 95 08/23/17 11:25 08/23/17 11:25 08/23/17 11:25 08/23/17 11:25 08/23/17 11:25 - Medications Medications: Current Medications Metronidazole (Flagyl) 500 mg in 100 mls @ 100 mls/hr IVPB Q8 DENIZ PRN Reason: Protocol Last Admin: 08/23/17 05:35 Dose: 100 mls/hr Ceftriaxone Sodium (Rocephin 1 Gram Ivpb) 1 gm in 100 mls @ 100 mls/hr IVPB DAILY DENIZ PRN Reason: Protocol Last Admin: 08/23/17 11:39 Dose: 100 mls/hr Sodium Chloride (Sodium Chloride 0.9%) 1,000 mls @ 100 mls/hr IV .Q10H [facility] Morphine Sulfate (Morphine) 2 mg IVP Q4 PRN PRN Reason: Pain, moderate (4-7) Pantoprazole Sodium (Protonix Inj) 40 mg IVP DAILY [facility] Last Admin: 08/23/17 11:38 Dose: 40 mg - Labs Labs: PT 14.2 SECONDS (9.4-12.5) H 08/23/17 04:05 INR 1.28 (0.93-1.08) H 08/23/17 04:05 APTT 27.0 Seconds (25.1-36.5) 08/23/17 04:05 - Constitutional Appears: Well, No Acute Distress - Head Exam Head Exam: ATRAUMATIC, NORMAL INSPECTION, NORMOCEPHALIC - Eye Exam Eye Exam: EOMI, Normal appearance - ENT Exam ENT Exam: Mucous Membranes Moist - Respiratory Exam Respiratory Exam: Clear to Ausculation Bilateral, NORMAL BREATHING PATTERN. absent: Decreased Breath Sounds, Rales, Rhonchi, Wheezes, Respiratory Distress - Cardiovascular Exam Cardiovascular Exam: REGULAR RHYTHM, +S1, +S2. absent: Tachycardia, Murmur - GI/Abdominal Exam GI & Abdominal Exam: Soft, Normal Bowel Sounds. absent: Distended, Firm, Guarding, Tenderness - Extremities Exam Extremities Exam: Normal Inspection. absent: Pedal Edema, Tenderness - Neurological Exam Neurological Exam: Alert, Awake, Oriented x3 - Skin Skin Exam: Dry, Intact, Normal Color, Warm Assessment and Plan - Assessment and Plan (Free Text) Assessment: 81 year old male with past medical history of diverticulosis, copd, hyperlipidemia presents with abdominal pain, most likely secondary to cholecystitis. CT abd/pelvis reviewed impression of suspicious cholecystitis, potentially acalculus, no evidence to suggest biliary tree dilatation. Plan: 1. abd pain 2/2 to most likely cholecystitis - CT abd/pel reviewed impression of suspicious cholecystitis, potentially acalculus, no evidence to suggest biliary tree dilatation. (refer to report) - labs reviewed, elevated LFTs most likely due to cholecystitis - abd US, official read pending - HIDA scan was abnormal with nonvisualization of CBD, small bowel gallbladder ( refer to full report) - ERCP pending - hepatitis panel negative - NPO, IVF NS at 100ml/hr - zosyn given in ED, started on cetriaxone and metronidazole - protonix daily - stop lipitor - morphine for pain control - surgery consulted - GI consulted 2. history of COPD - denies sob - will cont to monitor - will start duoneb if needed <Freedom Jaramillo - Last Filed: 08/23/17 20:17> Objective - Vital Signs/Intake and Output Vital Signs (last 24 hours): Temp Pulse Resp BP Pulse Ox 98.4 F 73 24 151/84 H 95 08/23/17 11:25 08/23/17 11:25 08/23/17 11:25 08/23/17 11:25 08/23/17 11:25 - Medications Medications: Current Medications Metronidazole (Flagyl) 500 mg in 100 mls @ 100 mls/hr IVPB Q8 DENIZ PRN Reason: Protocol Last Admin: 08/23/17 14:46 Dose: 100 mls/hr Ceftriaxone Sodium (Rocephin 1 Gram Ivpb) 1 gm in 100 mls @ 100 mls/hr IVPB DAILY DENIZ PRN Reason: Protocol Last Admin: 08/23/17 11:39 Dose: 100 mls/hr Sodium Chloride (Sodium Chloride 0.9%) 1,000 mls @ 100 mls/hr IV .Q10H [facility] Last Admin: 08/23/17 18:53 Dose: 100 mls/hr Morphine Sulfate (Morphine) 2 mg IVP Q4 PRN PRN Reason: Pain, moderate (4-7) Pantoprazole Sodium (Protonix Inj) 40 mg IVP DAILY [facility] Last Admin: 08/23/17 11:38 Dose: 40 mg - Labs Labs: PT 14.2 SECONDS (9.4-12.5) H 08/23/17 04:05 INR 1.28 (0.93-1.08) H 08/23/17 04:05 APTT 27.0 Seconds (25.1-36.5) 08/23/17 04:05 Assessment and Plan - Assessment and Plan (Free Text) Plan: Pt is seen and examined. Note of medical secretary reviewed and I am in agree with it. Reviewed Labs and medications. Reviewed notes. Spoke to Dr Lyn about pt. Will need ERCP/EUS. on IVF. Pain controlled.
[2017-08-24] MEDS: metroNIDAZOLE IV 500 mg/100 ml 500 MG/100 ML BAG IVPB SCH (05:42)
[2017-08-24] MEDS: Sodium Chloride 0.9% 1,000 ML IV SCH ×2 (05:43→17:31)
[2017-08-24 06:39] LABS: HEMATOCRIT 36.8 % (42.0-52.0); MEAN CELL VOLUME 91.8 fl (80.0-105.0); MEAN CORPUSCULAR HEMOGLOBIN 30.4 pg (25.0-35.0); MEAN CORPUSCULAR HGB CONC 33.2 g/dl (31.0-37.0); MEAN PLATELET VOLUME 11.1 fl (7.0-11.0); RED CELL DISTRIBUTION WIDTH 14.6 % (11.5-14.5); WHITE BLOOD COUNT 6.6 10^3/ul (4.5-11.0)
[2017-08-24 06:41] LABS: ALB/GLOB RATIO 1.1 (1.1-1.8); ALKALINE PHOSPHATASE 214 U/L (38-126); ALT/SGPT 597 U/L (7-56); AST/SGOT 277 U/L (17-59); BILIRUBIN,DIRECT 4.2 mg/dL (0.0-0.4); BILIRUBIN,TOTAL 5.1 mg/dL (0.2-1.3); BLOOD UREA NITROGEN 15 mg/dL (7-21); CARBON DIOXIDE 22 mmol/L (21-33); CHLORIDE 111 mmol/L (98-107); GFR AFRICAN-AMERICAN > 60; GLUCOSE,RANDOM 89 mg/dL (70-110); POTASSIUM 3.8 mmol/L (3.6-5.0); SODIUM 141 mmol/L (132-148)
--- NOTE | 2017-08-24 08:31 | CP.PCM.PN ---
Subjective - Date & Time of Evaluation Date of Evaluation: 08/24/17 Time of Evaluation: 08:27 - Subjective Subjective: General Surgery - Dr. Valdivia Pt S&E. CHATO. Pt complains of being thirsty and hungry. He denies any abdominal pain. No Nausea/Vomiting/Fevers/Chills/SOB /chest pains. Objective - Vital Signs/Intake and Output Vital Signs (last 24 hours): Temp Pulse Resp BP Pulse Ox 98.4 F 71 20 126/73 96 08/24/17 07:00 08/24/17 07:00 08/24/17 07:00 08/24/17 07:00 08/24/17 07:00 Intake and Output: 08/24/17 08/24/17 06:59 18:59 Intake Total 1200 Output Total 200 Balance 1000 - Medications Medications: Current Medications Metronidazole (Flagyl) 500 mg in 100 mls @ 100 mls/hr IVPB Q8 DENIZ PRN Reason: Protocol Last Admin: 08/24/17 05:42 Dose: 100 mls/hr Ceftriaxone Sodium (Rocephin 1 Gram Ivpb) 1 gm in 100 mls @ 100 mls/hr IVPB DAILY DENIZ PRN Reason: Protocol Last Admin: 08/23/17 11:39 Dose: 100 mls/hr Sodium Chloride (Sodium Chloride 0.9%) 1,000 mls @ 100 mls/hr IV .Q10H [facility] Last Admin: 08/24/17 05:43 Dose: 100 mls/hr Morphine Sulfate (Morphine) 2 mg IVP Q4 PRN PRN Reason: Pain, moderate (4-7) Pantoprazole Sodium (Protonix Inj) 40 mg IVP DAILY [facility] Last Admin: 08/23/17 11:38 Dose: 40 mg - Labs Labs: 08/24/17 06:00 08/24/17 06:00 PT 14.2 SECONDS (9.4-12.5) H 08/23/17 04:05 INR 1.28 (0.93-1.08) H 08/23/17 04:05 APTT 27.0 Seconds (25.1-36.5) 08/23/17 04:05 - Constitutional Appears: No Acute Distress - Head Exam Head Exam: ATRAUMATIC, NORMAL INSPECTION, NORMOCEPHALIC - Eye Exam Eye Exam: Scleral icterus - Respiratory Exam Respiratory Exam: NORMAL BREATHING PATTERN. absent: Respiratory Distress - Cardiovascular Exam Cardiovascular Exam: REGULAR RHYTHM - GI/Abdominal Exam GI & Abdominal Exam: Soft. absent: Distended, Firm, Guarding, Rigid, Tenderness , Mass, Rebound - Neurological Exam Neurological Exam: Alert, Oriented x3 - Psychiatric Exam Psychiatric exam: Normal Affect, Normal Mood - Skin Skin Exam: Dry, Intact Assessment and Plan - Assessment and Plan (Free Text) Assessment: 81 yo M w/ ascending cholangitis, s/p ERCP w/ sphincterotomy and stent -LFTs trending down -No signs of post-procedure pancreatitis -OK to start diet from our standpoint if clear by GI team -Continue supportive care, Pain control/Abx -Plan for delayed lap dell once pt. recovers from cholangitis DW Dr. Valdivia and Dr. Cooper (Covering thru 08/27) Madi PGY3
[2017-08-24] MEDS: cefTRIAXone 1 gm 1 GM/100 ML BAG IVPB SCH (10:51)
--- NOTE | 2017-08-24 14:09 | CON ---
DATE: 08/24/2017 LOCATION: The patient is in bed in [facility], bed 2. CHIEF COMPLAINT: Weakness times several days. HISTORY OF PRESENT ILLNESS: A 81-year-old male with chronic obstructive lung disease, high cholesterol, alcohol user, tobacco user, asthma, arthritis, diverticulosis, who was admitted with abdominal pain found to have ascending cholangitis who had an ERCP with sphincterotomy and biliary stent placement and now has a gram-negative maico in the bile cultures. Infectious disease consultation requested. The patient states that he did have low grade fevers however, and he was admitted with weakness and abdominal pain, however, is much improved. Now his abdominal pain is resolved. No chest pain, shortness of breath or cough. No abdominal pain, dysuria, or frequency. PAST MEDICAL HISTORY: Significant for chronic for lung disease, high cholesterol, alcohol abuse, tobacco use, asthma, arthritis, and diverticulosis. PAST SURGICAL HISTORY: Significant for right knee surgery. ALLERGIES: THE PATIENT IS ALLERGIC TO IODINE. MEDICATIONS AT HOME: Include Lipitor, aspirin, vitamins, and inhaler. PHYSICAL EXAMINATION: VITAL SIGNS: The patient is in bed with a temperature of 98. On admission, the patient's temperature was 96, pulse of 73, was up to 96 on admission, respiratory rate of 24, 94% saturation yesterday with a blood pressure of 150/80. HEENT: Unremarkable. NECK: Supple. LUNGS: Decreased breath sounds. HEART: Normal S1 and S2. ABDOMEN: Soft, nontender. No rebound or guarding. LABORATORY EXAMINATION: Reveals the patient's white count of 8.9, hemoglobin of 14, MCV of 90 with a platelets of 168 and 91% granulocytosis. Coagulation is noted. The LFTs are noted to be elevated and high alk phos. Lipase and amylase are negative. Hepatitis profile is negative. Microbiology reveals blood cultures have no growth. Bile culture has gram-negative maico, and the patient had a CT scan of the abdomen and pelvis which is reviewed and ERCP. ASSESSMENT AND PLAN: This is a 81-year-old with a chronic obstructive lung disease, high cholesterol, alcohol use, tobacco use, asthma, arthritis, and diverticulosis, status post endoscopic retrograde cholangiopancreatography with sphincterotomy and bile stent with: 1. Sepsis with a gram-negative maico. 2. Ascending cholangitis. We will treat with Zosyn. We will check on the gram-negative maico identification and sensitivity. Case discussed with Dr. Jaramillo, and we will make further recommendations. GI and surgery are already on the case. Artie Arreguin MD
[2017-08-24] MEDS: Piperacillin/Tazobact 3.375 gm 100 ML IVPB SCH (17:31)
--- NOTE | 2017-08-24 21:15 | PN ---
DATE: 08/24/2017 SUBJECTIVE: The patient has no complaints of any chest pain, no shortness of breath or headache. PHYSICAL EXAMINATION VITAL SIGNS: Temperature is 97.7, pulse is 74, blood pressure is 116/64, respiration is 16. GENERAL: The patient is lying in bed, flat, comfortable. HEENT: No oral lesion. Anicteric sclerae. Moist mucosa. NECK: No JVD, adenopathy, or thyromegaly. CARDIOVASCULAR: S1 and S2, regular. No murmurs, rubs, or gallops. LUNGS: Clear to auscultation bilaterally. No wheeze, rales, or rhonchi. ABDOMEN: Bowel sounds are positive, soft, nontender and nondistended. EXTREMITIES: No cyanosis, clubbing or edema. LABORATORY DATA: White count of 6.6,hemoglobin 12.2, creatinine 0.9. ASSESSMENT: 1. Ascending cholangitis. 2. Chronic obstructive pulmonary disease. 3. Dyslipidemia. 4. Osteoarthritis. 5. Status post endoscopic retrograde cholangiopancreatography with sphincterectomy and bile stent. PLAN: The patient is currently uncomfortable; however, his pain is improved. The patient had ascending cholangitis as seen on ERCP. The patient had pus that was seen during his procedure by Dr. Lyn. The patient is aseptic with gram-negative rods on blood culture. He is receiving Zosyn for antibiotics. He is on Protonix daily. The patient is on a liquid diet. I did speak to Dr. Lyn regarding the case. The patient will need repeat intervention and most likely surgery once the patient's infection is improved. The patient's LFTs are elevated and starting to improve. The amylase and lipase are normal. Freedom Jaramillo MD
[2017-08-24] MEDS ORDERED: Arformoterol 15 mcg/2 ml Inh Sol IH ONE (21:30)
[2017-08-25] MEDS: Piperacillin/Tazobact 3.375 gm 100 ML IVPB SCH ×4 (00:11→18:50)
[2017-08-25] MEDS: Sodium Chloride 0.9% 1,000 ML IV SCH (02:47)
[2017-08-25 07:45] LABS: BASO # 0.02 K/mm3 (0.0-2.0); BASO % 0.4 % (0.0-3.0); EOS # 0.2 (0.0-0.7); EOS % 3.7 % (1.5-5.0); GRAN # 3.38 (1.4-6.5); GRAN % 65.3 % (50.0-68.0); HEMATOCRIT 35.9 % (42.0-52.0); LYMPH # 1.1 (1.2-3.4); LYMPH % 20.3 % (22.0-35.0); MEAN CORPUSCULAR HEMOGLOBIN 29.8 pg (25.0-35.0); MEAN CORPUSCULAR HGB CONC 33.1 g/dl (31.0-37.0); MEAN PLATELET VOLUME 10.4 fl (7.0-11.0); MONO # 0.5 (0.1-0.6); MONO % 10.3 % (1.0-6.0); RED CELL DISTRIBUTION WIDTH 14.3 % (11.5-14.5); WHITE BLOOD COUNT 5.2 10^3/ul (4.5-11.0)
[2017-08-25 07:50] LABS: ALB/GLOB RATIO 1.1 (1.1-1.8); ALKALINE PHOSPHATASE 215 U/L (38-126); ALT/SGPT 407 U/L (7-56); AST/SGOT 110 U/L (17-59); BILIRUBIN,DIRECT 1.4 mg/dL (0.0-0.4); BILIRUBIN,TOTAL 2.3 mg/dL (0.2-1.3); BLOOD UREA NITROGEN 9 mg/dL (7-21); CALCIUM 7.9 mg/dL (8.4-10.5); CARBON DIOXIDE 24 mmol/L (21-33); CHLORIDE 109 mmol/L (98-107); GFR AFRICAN-AMERICAN > 60; GLUCOSE,RANDOM 94 mg/dL (70-110); POTASSIUM 3.4 mmol/L (3.6-5.0); SODIUM 139 mmol/L (132-148); TOTAL PROTEIN 5.6 g/dL (5.8-8.3)
--- NOTE | 2017-08-25 09:41 | CP.PCM.PN ---
Subjective - Date & Time of Evaluation Date of Evaluation: 08/25/17 Time of Evaluation: 09:18 - Subjective Subjective: General Surgery - Dr. Valdivia (Dr. miller covering thru 08/27) Pt S&E. CHATO. Pt denies any complaints and states that he feels good today. He is tolerating liquid diet and wishes to eat more. No Nausea, Vomiting, Fevers, Chills, SOB, Chest pain. He had 2 BMs last night. He has been ambulating in the room, encouraged to ambulate the halls today. Objective - Vital Signs/Intake and Output Vital Signs (last 24 hours): Temp Pulse Resp BP Pulse Ox 98 F 67 22 114/59 L 94 L 08/25/17 07:54 08/25/17 07:54 08/25/17 07:54 08/25/17 07:54 08/25/17 07:54 Intake and Output: 08/25/17 08/25/17 06:59 18:59 Intake Total 180 Output Total 800 Balance -620 - Medications Medications: Current Medications Sodium Chloride (Sodium Chloride 0.9%) 1,000 mls @ 100 mls/hr IV .Q10H DENIZ Last Admin: 08/25/17 02:47 Dose: 100 mls/hr Piperacillin Sod/Tazobactam Sod (Zosyn 3.375 In Ns 100ml) 100 mls @ 200 mls/hr IVPB Q6 DENIZ PRN Reason: Protocol Stop: 09/07/17 12:01 Last Admin: 08/25/17 06:43 Dose: 200 mls/hr Morphine Sulfate (Morphine) 2 mg IVP Q4 PRN PRN Reason: Pain, moderate (4-7) Non-Formulary Medication (Fluticasone/Salmeterol [Advair 250-50 Diskus]) 1 each IH DAILY DENIZ Pantoprazole Sodium (Protonix Inj) 40 mg IVP DAILY DENIZ Last Admin: 08/24/17 10:51 Dose: 40 mg - Labs Labs: 08/25/17 06:00 08/25/17 06:00 PT 14.2 SECONDS (9.4-12.5) H 08/23/17 04:05 INR 1.28 (0.93-1.08) H 08/23/17 04:05 APTT 27.0 Seconds (25.1-36.5) 08/23/17 04:05 - Constitutional Appears: No Acute Distress - Head Exam Head Exam: ATRAUMATIC, NORMAL INSPECTION, NORMOCEPHALIC - Eye Exam Eye Exam: Normal appearance. absent: Scleral icterus - Respiratory Exam Respiratory Exam: NORMAL BREATHING PATTERN. absent: Respiratory Distress - GI/Abdominal Exam GI & Abdominal Exam: Soft. absent: Distended, Firm, Guarding, Rigid, Tenderness , Rebound - Neurological Exam Neurological Exam: Alert, Oriented x3 - Psychiatric Exam Psychiatric exam: Normal Affect, Normal Mood - Skin Skin Exam: Dry, Intact Assessment and Plan - Assessment and Plan (Free Text) Assessment: 81 yo M w/ ascending cholangitis, s/p ERCP w/ sphincterotomy and stent -LFTs continue to trend down, Tbili 2.3 today -Advance diet as tolerated if OK w/ Dr. Lyn -Plan for lap dell once pt. recovers from cholangitis DW Dr. Valdivia and Dr. Miller (Covering thru 08/27) Madi PGY3
[2017-08-25] MEDS ORDERED: Potassium Chloride 20 mEq ER Tab PO ONE (10:30)
--- NOTE | 2017-08-25 13:32 | PN ---
DATE: 08/25/2017 SUBJECTIVE: The patient is seen in room 570, bed 2. No fever and chills. PHYSICAL EXAMINATION: VITAL SIGNS: Temperature is 98, blood pressure is 114/70, respiratory rate is 22, heart rate of 67. HEENT: Unremarkable. NECK: Supple. LUNGS: Decreased breath sounds. HEART: Normal S1 and S2. ABDOMEN: Soft. LABORATORY DATA: Laboratory examination reveals a white count of 5.2, hemoglobin of 11. BUN of 9, creatinine of 0.9. LFTs are noted. Serology is reviewed. Hepatitis profile is negative. Microbiology reveals the bile culture has Klebsiella pneumonia species. The blood cultures have no growth. The Klebsiella is poole sensitive. Review of orders reveals the patient to be on Zosyn. Dr. Barraza's progress note is reviewed. Dr. Jaramillo's progress note from yesterday is reviewed. ASSESSMENT AND PLAN: This is a 81-year-old male who is ALLERGIC TO IODINE, who has a history of chronic obstructive lung disease, high cholesterol, alcohol use, tobacco use, asthma, arthritis, and diverticulosis, admitted with sepsis with ascending cholangitis with Klebsiella pneumonia poole sensitive. Currently, on Zosyn. We will follow with you as per GI and Surgery. Artie Arreguin MD
--- NOTE | 2017-08-25 16:34 | PN ---
DATE: 08/25/2017 SUBJECTIVE: The patient says he is comfortable. He has no complaints of any abdominal pain. No headaches, no nausea, no vomiting. PHYSICAL EXAMINATION: VITAL SIGNS: Temperature is 98, pulse is 67, blood pressure is 114/59, respiration is 22. GENERAL: The patient is lying in bed, flat, comfortable. HEENT: No oral lesion. Anicteric sclerae. Moist mucosa. NECK: No JVD, adenopathy, or thyromegaly. CARDIOVASCULAR: S1 and S2, regular. No murmurs, rubs, or gallops. LUNGS: Clear to auscultation bilaterally. No wheeze, rales, or rhonchi. ABDOMEN: Bowel sounds are positive, soft, nontender and nondistended. EXTREMITIES: No cyanosis, clubbing or edema. LABORATORY DATA: White count of 5.2, hemoglobin 11.2, potassium is 3.4, creatinine is 0.9. ASSESSMENT: 1. Ascending cholangitis, improving. 2. Sepsis. 3. Chronic obstructive pulmonary disease, stable. 4. Dyslipidemia. 5. Osteoarthritis. 6. Status post endoscopic retrograde cholangiopancreatography with sphincterectomy and bile stent placement. PLAN: The patient is currently comfortable, is on IV fluids with normal saline. I will discontinue that. I will advance his diet. He is on Zosyn for antibiotic. This will be continued. He is receiving morphine for pain. He has a blood culture that shows Klebsiella. Freedom Jaramillo MD
[2017-08-25] MEDS ORDERED: Sodium Chloride 0.9% 1,000 ML IV SCH (18:15)
--- NOTE | 2017-08-25 20:03 | CP.PCM.PCO ---
Physician Communication Note - Physician Communication Note Physician Communication Note: Possible rep ERCP then LapChole in 4 weeks
[2017-08-25] MEDS: FLUTICASONE IH SCH (21:40)
[2017-08-25] MEDS: SALMETEROL IH SCH (21:40)
--- NOTE | 2017-08-26 01:57 | PN ---
DATE: 08/25/2017 SUBJECTIVE: This patient was seen and evaluated earlier today. The patient is tolerating the soft diet. Feels much better. The only complaint he has increased micturition. He has been on IV fluids about 100 mL/hour. PHYSICAL EXAMINATION: VITAL SIGNS: Afebrile, blood pressure 114/59, pulse 67, respirations 22, and O2 saturation is 95%. HEENT: Atraumatic. Anicteric. NECK: Supple. HEART: S1 and S2 heard. LUNGS: Bilateral air entry present. ABDOMEN: Soft. There is no tenderness. EXTREMITIES: No edema. No cyanosis. NEUROLOGIC: Alert and oriented. Moves all the extremities. LABORATORY DATA: Hemoglobin 11.9, hematocrit 35.9, WBC 5.2, and platelets 167. Chemistries shows total bilirubin 2.3, direct bilirubin 1.4, AST 110, ALT 407, and alkaline phosphatase 215. IMPRESSION: This is a 81-year-old patient with cholangitis and probable cholecystitis, had ERCP and sphincterotomy, and placement of the stent. Liver function tests have been improving. The bile culture grew Klebsiella pneumoniae. The patient has been on antibiotics Zosyn. PLAN: Since the LFTs has been significantly improving, the stent is functioning well. We will allow the infection to subside and would not consider any immediate ERCP and manipulation of the duct at the present time. We will consider repeat ERCP in about 2 to 3 weeks' time. If the surgery is considered, the patient can go ahead with the surgery after further improvement of the liver function. The patient did have thickened bile duct with pus draining from the bile. He would benefit from intravenous antibiotics as per the ID. Followup of the LFT. We will also discuss with Dr. Cooper who is covering for Dr. Valdivia. Thank you very much for allowing us to participate in the care of the patient. Shona Lyn MD
[2017-08-26] MEDS: Piperacillin/Tazobact 3.375 gm 100 ML IVPB SCH ×2 (02:38→06:49)
[2017-08-26 07:18] LABS: BASO # 0.03 K/mm3 (0.0-2.0); BASO % 0.5 % (0.0-3.0); EOS # 0.2 (0.0-0.7); EOS % 3.9 % (1.5-5.0); GRAN # 3.62 (1.4-6.5); GRAN % 61.4 % (50.0-68.0); HEMATOCRIT 37.3 % (42.0-52.0); LYMPH # 1.2 (1.2-3.4); LYMPH % 20.5 % (22.0-35.0); MEAN CELL VOLUME 89.4 fl (80.0-105.0); MEAN CORPUSCULAR HEMOGLOBIN 30.2 pg (25.0-35.0); MEAN CORPUSCULAR HGB CONC 33.8 g/dl (31.0-37.0); MEAN PLATELET VOLUME 10.1 fl (7.0-11.0); MONO # 0.8 (0.1-0.6); MONO % 13.7 % (1.0-6.0); RED CELL DISTRIBUTION WIDTH 14.4 % (11.5-14.5); WHITE BLOOD COUNT 5.9 10^3/ul (4.5-11.0)
[2017-08-26 07:38] LABS: ALB/GLOB RATIO 1.1 (1.1-1.8); ALKALINE PHOSPHATASE 208 U/L (38-126); ALT/SGPT 304 U/L (7-56); AST/SGOT 74 U/L (17-59); BILIRUBIN,DIRECT 1.1 mg/dL (0.0-0.4); BLOOD UREA NITROGEN 9 mg/dL (7-21); CALCIUM 8.3 mg/dL (8.4-10.5); CARBON DIOXIDE 25 mmol/L (21-33); CHLORIDE 108 mmol/L (98-107); GFR AFRICAN-AMERICAN > 60; GLUCOSE,RANDOM 105 mg/dL (70-110); POTASSIUM 3.7 mmol/L (3.6-5.0); SODIUM 141 mmol/L (132-148); TOTAL PROTEIN 5.8 g/dL (5.8-8.3)
[2017-08-26 07:59] VITALS: BP 160/80; PULSE 69; RESP 20; TEMP 98.2; O2SAT 96
--- NOTE | 2017-08-26 08:19 | CP.PCM.PN ---
Subjective - Date & Time of Evaluation Date of Evaluation: 08/26/17 Time of Evaluation: 08:16 - Subjective Subjective: Surgery Pt s&E. NAEON. Denies pain/F/N/V/D/CP/SOB. + amb. + void. Objective - Vital Signs/Intake and Output Vital Signs (last 24 hours): Temp Pulse Resp BP Pulse Ox 98.2 F 69 20 160/80 H 96 08/26/17 07:58 08/26/17 07:58 08/26/17 07:58 08/26/17 07:58 08/26/17 07:58 Intake and Output: 08/26/17 08/26/17 06:59 18:59 Intake Total 240 Balance 240 - Medications Medications: Current Medications Piperacillin Sod/Tazobactam Sod (Zosyn 3.375 In Ns 100ml) 100 mls @ 200 mls/hr IVPB Q6 DENIZ PRN Reason: Protocol Stop: 09/07/17 12:01 Last Admin: 08/26/17 06:49 Dose: 200 mls/hr Morphine Sulfate (Morphine) 2 mg IVP Q4 PRN PRN Reason: Pain, moderate (4-7) (Fluticasone/Salmeterol [Advair 250-50 Diskus] (Home ) 1 each IH Q12 DENIZ Last Admin: 08/25/17 21:40 Dose: 1 each Pantoprazole Sodium (Protonix Inj) 40 mg IVP DAILY DENZI Last Admin: 08/25/17 10:37 Dose: 40 mg - Labs Labs: 08/26/17 07:07 08/26/17 07:07 PT 14.2 SECONDS (9.4-12.5) H 08/23/17 04:05 INR 1.28 (0.93-1.08) H 08/23/17 04:05 APTT 27.0 Seconds (25.1-36.5) 08/23/17 04:05 - Constitutional Appears: No Acute Distress - Head Exam Head Exam: ATRAUMATIC, NORMAL INSPECTION, NORMOCEPHALIC - Eye Exam Eye Exam: EOMI, Normal appearance, PERRL Pupil Exam: NORMAL ACCOMODATION, PERRL - ENT Exam ENT Exam: Mucous Membranes Moist, Normal Exam - Neck Exam Neck Exam: Full ROM, Normal Inspection. absent: Lymphadenopathy - Respiratory Exam Respiratory Exam: Clear to Ausculation Bilateral, NORMAL BREATHING PATTERN - Cardiovascular Exam Cardiovascular Exam: REGULAR RHYTHM, +S1, +S2. absent: Murmur - GI/Abdominal Exam GI & Abdominal Exam: Soft, Normal Bowel Sounds. absent: Distended, Firm, Guarding, Rigid, Tenderness - Extremities Exam Extremities Exam: Full ROM, Normal Capillary Refill, Normal Inspection. absent : Joint Swelling, Pedal Edema - Back Exam Back Exam: NORMAL INSPECTION - Neurological Exam Neurological Exam: Alert, Awake, CN II-XII Intact, Normal Gait, Oriented x3 - Psychiatric Exam Psychiatric exam: Normal Affect, Normal Mood - Skin Skin Exam: Dry, Intact, Normal Color, Warm Assessment and Plan - Assessment and Plan (Free Text) Assessment: 81 yo M w/ ascending cholangitis, s/p ERCP w/ sphincterotomy and stent -LFTs continue to trend down, Tbili 2 today -Plan for lap dell once pt. recovers from cholangitis in 4-6 weeks -Possible repeat ERCP Will DW Dr. Valdivia and Dr. Cooper (Covering thru 08/27)
[2017-08-26] MEDS: FLUTICASONE IH SCH (10:02)
[2017-08-26] MEDS: SALMETEROL IH SCH (10:02)
--- NOTE | 2017-08-26 10:08 | PN ---
DATE: 08/24/2017 SUBJECTIVE: This patient was seen and evaluated earlier. Discussed with the patient's at length who was at bedside. PHYSICAL EXAMINATION: GENERAL: On exam, the patient is comfortable, tolerating the diet. VITAL SIGNS: His temperature is 97.7, pulse 74, and blood pressure 116/64. HEENT: Head is atraumatic, mildly jaundiced. NECK: Supple. HEART: S1 and S2 heard. LUNGS: Bilateral air entry present. ABDOMEN: Soft and distended. Bowel sounds present. No tenderness. EXTREMITIES: No edema. No cyanosis. NEUROLOGIC: Alert and oriented, moves all the extremities. LABORATORY DATA: Hemoglobin 12.2, hematocrit 36.8, WBC 6.6, and platelets 178. BUN 15 and creatinine 0.9. LFTs shows a downward trend. Total bilirubin has come down to 5.1. AST has come down to and the ALT to 597. IMPRESSION: This 81-year-old patient admitted with abdominal pain and jaundice. The patient has gallbladder sludge with thickened gallbladder wall with pericholecystic fluid. Had endoscopic retrograde cholangiopancreatography, sphincterotomy, and balloon sweep done. The patient was found to have a pus which was draining. There was a stent placed. No aggressive biliary manipulation done in view of this severe cholangitis pattern. RECOMMENDATIONS: To advance the diet slowly. Continue with the antibiotics. The patient may need followup of the LFTs. The plan is, if the LFTs continue to show a downward trend, the patient would need a repeat ERCP, removal of the stent, and clearing of the bile duct in two weeks' time and we will discuss with the surgeon regarding the timing of the gallbladder surgery. Thank you very much for allowing me to participate in the care of the patient. Shona Lyn MD
--- NOTE | 2017-08-26 12:05 | DS ---
DATE: HISTORY OF PRESENT ILLNESS: This is a 81-year-old male, who is coming in to the hospital after he was found to have ascending cholangitis. The patient was treated with IV antibiotics. He had a stent placed in his common bile duct. The patient had ERCP and a sphincterectomy. The patient is feeling much better. He did have cultures that show Klebsiella pneumoniae infection that is sensitive to most antibiotics. I spoke with infectious disease and the patient can be discharged home today. He is feeling well. He is ambulating. He is able to tolerate his diet. He is going to have a repeat ERCP done for the stent removal. He will also have surgery done in about 6 to 8 weeks. PHYSICAL EXAMINATION: VITAL SIGNS: Temperature is 98.2, pulse is 69, blood pressure 160/80, respirations 20, O2 saturation is 96%. GENERAL: The patient is lying in bed, flat, comfortable. HEENT: No oral lesion. Anicteric sclerae. Moist mucosa. NECK: No JVD, adenopathy, or thyromegaly. CARDIOVASCULAR: S1 and S2, regular. No murmurs, rubs, or gallops. LUNGS: Clear to auscultation bilaterally. No wheeze, rales, or rhonchi. ABDOMEN: Bowel sounds are positive, soft, nontender and nondistended. EXTREMITIES: No cyanosis, clubbing or edema. ASSESSMENT: 1. Ascending cholangitis, resolved. 2. Sepsis, resolved. 3. Chronic obstructive pulmonary disease, stable. 4. Dyslipidemia. 5. Osteoarthritis. 6. Status post endoscopic retrograde cholangiopancreatography with sphincterectomy with bile stent placement. PLAN: The patient is currently comfortable. He is going to be discharged home. He is on a heart healthy diet. He is currently on Zosyn. I will change his antibiotics to ciprofloxacin. Condition is stable. Activities, increase as tolerated. Freedom Jaramillo MD
== END 2017-08-26 10:48 | disposition home or self-care (01) | DRG 872 ==
LOC: ED 05:50 → ERH 10:07 → 5RSO 11:56 → OBSVTOIN 08-23 12:41
PROVIDERS: ADMIT Internal Medicine Nephrology; ATTEND Internal Medicine Nephrology
PROC: BF111ZZ Fluoroscopy of Biliary and Pancreatic Ducts using Low Osmolar Contrast (ICD-10-PCS; 2017-08-23)
PROC: 0F798DZ Dilation of Common Bile Duct with Intraluminal Device, Via Natural or Artificial Opening Endoscopic (ICD-10-PCS; principal; 2017-08-23 08:00)
PROC: 0DJ08ZZ Inspection of Upper Intestinal Tract, Via Natural or Artificial Opening Endoscopic (ICD-10-PCS; 2017-08-23 08:00)
PROC: BF43ZZZ Ultrasonography of Gallbladder and Bile Ducts (ICD-10-PCS; 2017-08-23 08:00)
PROC: BF47ZZZ Ultrasonography of Pancreas (ICD-10-PCS; 2017-08-23 08:00)
PROC: 0F998ZZ Drainage of Common Bile Duct, Via Natural or Artificial Opening Endoscopic (ICD-10-PCS; 2017-08-23 08:00)
PROC: 3E0F7GC Introduction of Other Therapeutic Substance into Respiratory Tract, Via Natural or Artificial Opening (ICD-10-PCS; 2017-08-24)
DX: A41.9 Sepsis, unspecified organism (principal); K83.0 Cholangitis; B96.1 Klebsiella pneumoniae [K. pneumoniae] as the cause of diseases classified elsewhere; K81.0 Acute cholecystitis; J44.9 Chronic obstructive pulmonary disease, unspecified; E78.5 Hyperlipidemia, unspecified; E78.00 Pure hypercholesterolemia, unspecified; K82.8 Other specified diseases of gallbladder; K57.30 Diverticulosis of large intestine without perforation or abscess without bleeding; K76.0 Fatty (change of) liver, not elsewhere classified; M17.11 Unilateral primary osteoarthritis, right knee; Z79.82 Long term (current) use of aspirin; Z87.891 Personal history of nicotine dependence; Z91.041 Radiographic dye allergy status

== ENCOUNTER 2017-10-01 10:10 | Day surgery (SDC) | payer MEDICARE, BC ==
[2017-09-20 13:26] VITALS: BMI 29.0
[2017-10-01] MEDS ORDERED: Indomethacin 50 MG Suppository PR ONE (10:35)
[2017-10-01] MEDS ORDERED: Iohexol 240 (50 ml) ONE (10:36)
[2017-10-01 10:41] LABS: BASO # 0.02 K/mm3 (0.0-2.0); BASO % 0.3 % (0.0-3.0); EOS # 0.2 (0.0-0.7); EOS % 3.1 % (1.5-5.0); GRAN # 4.36 (1.4-6.5); GRAN % 68.4 % (50.0-68.0); HEMATOCRIT 40.2 % (42.0-52.0); LYMPH # 1.4 (1.2-3.4); LYMPH % 21.4 % (22.0-35.0); MEAN CELL VOLUME 90.7 fl (80.0-105.0); MEAN CORPUSCULAR HGB CONC 33.1 g/dl (31.0-37.0); MEAN PLATELET VOLUME 9.2 fl (7.0-11.0); MONO # 0.4 (0.1-0.6); MONO % 6.8 % (1.0-6.0); RED CELL DISTRIBUTION WIDTH 13.4 % (11.5-14.5); WHITE BLOOD COUNT 6.4 10^3/ul (4.5-11.0)
[2017-10-01 10:52] LABS: INR 1.15 (0.93-1.08); PARTIAL THROMBOPLASTIN TIME 31.1 Seconds (25.1-36.5)
[2017-10-01 11:02] LABS: ALB/GLOB RATIO 1.3 (1.1-1.8); ALKALINE PHOSPHATASE 91 U/L (38-126); ALT/SGPT 33 U/L (7-56); AMYLASE 47 U/L (35-125); AST/SGOT 27 U/L (17-59); BILIRUBIN,TOTAL 0.9 mg/dL (0.2-1.3); BLOOD UREA NITROGEN 16 mg/dL (7-21); CALCIUM 9.1 mg/dL (8.4-10.5); CARBON DIOXIDE 28 mmol/L (21-33); CHLORIDE 106 mmol/L (98-107); GFR AFRICAN-AMERICAN > 60; GLUCOSE,RANDOM 102 mg/dL (70-110); LIPASE 42 U/L (23-300); POTASSIUM 4.1 mmol/L (3.6-5.0); SODIUM 141 mmol/L (132-148)
[2017-10-01] MEDS ORDERED: Propofol 10 mg/ml Inj (20 ML) ONE (13:14)
[2017-10-01] MEDS ORDERED: Succinylcholine 200 mg/10 ml Inj IV ONE (13:19)
[2017-10-01] MEDS ORDERED: DiphenhydrAMINE 50 mg/ml Inj ONE (13:36)
[2017-10-01] MEDS ORDERED: Glucagon Recombinant 1 mg Inj ONE (13:43)
[2017-10-01] MEDS ORDERED: cefTRIAXone (Rocephin) 1 gm Inj ONE (13:44)
--- NOTE | 2017-10-01 14:40 | RAD ---
HISTORY: pre op gb sx/chronic cholecystitis COMPARISON: 02/27/2016 TECHNIQUE: Chest PA and lateral FINDINGS: LUNGS: Linear scar/ atelectasis at left base. Likely scar given absence of interval change since 2016. No acute infiltrate. PLEURA: No significant pleural effusion identified. No pneumothorax apparent. CARDIOVASCULAR: Normal. OSSEOUS STRUCTURES: No significant abnormalities. VISUALIZED UPPER ABDOMEN: Normal. OTHER FINDINGS: None. IMPRESSION: No active disease.
[2017-10-01] MEDS ORDERED: Sodium Chloride 0.9% 1,000 ML IV SCH (15:00)
[2017-10-01 15:35] VITALS: RESP 18; TEMP 98.1; O2SAT 98
[2017-10-01 16:48] VITALS: BP 142/75; PULSE 70
--- NOTE | 2017-10-01 17:33 | RAD ---
PROCEDURE: ERCP HISTORY: ? CBD OBST / STENT REMOVAL COMPARISON: TECHNIQUE: Fluoroscopy was provided in the endoscopy suite. 338 seconds of fluoro time were used. Ten images were submitted FINDINGS: There is passage of a wire and balloon catheter through the common duct. IMPRESSION: As above
== END 2017-10-01 17:00 | disposition home or self-care (01) ==
LOC: ENDO 10:10
PROVIDERS: ATTEND Internal Medicine Gastroenterology
DX: K80.50 Calculus of bile duct without cholangitis or cholecystitis without obstruction (principal)
CPT/HCPCS: 36415; 43261; 43264; 43275; 71020; 74330; 80053; 82150; 82977; 83690; 85025; 85610; 85730; 88305; J0330; J0696; J1200; J1610; J2001; J2704; J7040; Q9966

== ENCOUNTER 2017-10-04 06:06 | Day surgery (SDC) | payer MEDICARE, BC ==
[2017-09-20 14:12] VITALS: BMI 29.0
[2017-10-04] MEDS ORDERED: Propofol 10 mg/ml Inj (20 ML) ONE (07:46)
[2017-10-04] MEDS ORDERED: Rocuronium 10 mg/ml (5 ml) ONE (07:46)
[2017-10-04] MEDS ORDERED: Bupivacaine 0.5% Inj(30mL) ONE (07:51)
[2017-10-04] MEDS ORDERED: CeFAZolin 1 gm in NS 100ml IVPB ONE (08:05)
[2017-10-04] MEDS ORDERED: Iohexol 240 (50 ml) ONE (08:07)
[2017-10-04] MEDS ORDERED: Bupivacaine 0.5% Inj(30mL) IJ ONE (08:17)
[2017-10-04] MEDS ORDERED: Neostigmine Methylsulfate 3mg/3ml Syringe IV ONE ×2 (09:10→09:16)
[2017-10-04] MEDS ORDERED: Oxycodone/Acetaminophen 5/325 mg Tab PO ONE (09:40)
[2017-10-04] MEDS ORDERED: HYDROmorphone 0.5 mg/0.5 ml ISec IVP PRN (09:43)
--- NOTE | 2017-10-04 09:44 | PCM.SURG1 ---
<Juve Moseley - Last Filed: 10/04/17 09:43> Surgeon's Initial Post Op Note - Surgeon's Notes Surgeon: Dr. Valdivia Chair Upholsterer: Dr. Dill PGY2, Dr. Moseley PGY1 Type of Anesthesia: General Endo Pre-Operative Diagnosis: Chronic Cholecystitis Operative Findings: see op note Post-Operative Diagnosis: as above Operation Performed: laparoscopic cholecystectomy Specimen/Specimens Removed: gallbladder Estimated Blood Loss: EBL {In ML}: 5 Post-Op Condition: Good Date of Surgery/Procedure: 10/04/17 Time of Surgery/Procedure: 08:30 <Alhaji Valdivia - Last Filed: 10/04/17 09:58> Surgeon's Initial Post Op Note - Surgeon's Notes Operation Performed: Laparoscopic cholecystectomy with cholangiogram
[2017-10-04] MEDS ORDERED: Lactated Ringer's 1,000 ML IV SCH (09:45)
[2017-10-04 10:40] VITALS: O2SAT 95
[2017-10-04 10:57] VITALS: RESP 18; TEMP 97.5
[2017-10-04 11:32] VITALS: BP 152/79; PULSE 78
--- NOTE | 2017-10-04 12:38 | OP ---
PROCEDURE DATE: 10/04/2017 PREOPERATIVE DIAGNOSES: Chronic cholecystitis with cholelithiasis. POSTOPERATIVE DIAGNOSES: Chronic cholecystitis with cholelithiasis. PROCEDURE PERFORMED: Laparoscopic cholecystectomy with intraoperative cholangiogram. SURGEON: Dr. Alhaji Valdivia. EGG TRAYER: Dr. Dill and Dr. Moseley. ANESTHESIOLOGIST: Dr. Obrien. TYPE OF ANESTHESIA: General endotracheal anesthesia. ESTIMATED BLOOD LOSS: Minimal. SPECIMENS: Gallbladder and gallstones. INDICATIONS: The patient is a 81-year-old male with history of previous cholecystitis and choledocholithiasis, status post ERCP. The patient also has sphincterotomy. The patient now comes in for laparoscopic cholecystectomy. DESCRIPTION OF PROCEDURE: First standard time-out procedure took place and everybody in the room agreed as to the patient's identity, diagnosis, and procedure to be performed. The patient underwent general endotracheal anesthesia and was prepped and draped in the usual sterile fashion. After that, the patient had a standard time-out procedure done as listed above. First using 2 towel clips, the anterior abdominal wall was elevated and Veress needle was inserted through the small incision superior to the umbilicus. Once the pneumoperitoneum was obtained, a 12 mm trocar was inserted through this incision and careful evaluation of abdominal cavity revealed the presence of gallbladder with some adhesions, omentum to the gallbladder and the remainder of the abdominal cavity appeared to be without any significant findings. At this point, we proceeded with placing a second 5 mm trocar in the subxiphoid position and proceeded with grabbing the gallbladder and elevating it and taking down the adhesions of the omentum from the lower portion of the gallbladder and infundibulum. Once the infundibulum was exposed, careful dissection was done and noted to expose cystic duct, which was clearly visible and cystic artery, which was directly behind it. Once those structures were identified and insertion of the cystic duct into the gallbladder were identified as well, I then proceeded with clipping the cystic duct proximally. I made a small incision just below the clip. Next, the cholangiocatheter was inserted into the cystic duct under direct visualization fluoroscopy, cholangiogram was obtained. That showed prompt flow of dye into the entire biliary tree and emptying into the duodenum without any delay. The cystic duct also appeared to be fairly long. At this point, we removed the cholangiocatheter and clipped the cystic duct distally and transected it. The cystic artery directly behind it was also clipped and transected. The gallbladder was carefully taken down using electrocautery from its liver bed. Once completely detached, it was placed in the EndoCatch bag and removed through the periumbilical incision. The surface of the liver and the gallbladder bed was carefully inspected. There was no bleeding and the area was copiously irrigated and then the irrigant fluid was suctioned out. The entry site of the ports were checked from the inside and showed no evidence of bleeding. At this point, we stopped the insufflation and let the pneumoperitoneum to be released completely, removed the trocar and closed the wound using 0 Vicryl for the fascia, 3-0 Vicryl for the subcutaneous tissue, and 4-0 Monocryl for the skin. A sterile Dermabond dressing was applied to the wound. The patient tolerated the procedure well and there were no complications. The patient was awakened and transferred to the recovery room for further observation. Alhaji Valdivia MD
--- NOTE | 2017-10-07 08:51 | RAD ---
PROCEDURE: Operative cholangiogram HISTORY: Cholangiogram COMPARISON: TECHNIQUE: Fluoroscopy was provided in the operating room. 40.2 seconds of fluoro time. Three images were submitted FINDINGS: There are no filling defects seen in the common duct. Contrast flows into the duodenum without obstruction IMPRESSION: As above
== END 2017-10-04 12:21 | disposition home or self-care (01) ==
LOC: SDS 06:06
PROVIDERS: ATTEND General Practice
DX: K80.64 Calculus of gallbladder and bile duct with chronic cholecystitis without obstruction (principal)
CPT/HCPCS: 47563; 74300; 88304; J0690; J1170; J1885; J2405; J2704; J2710; J3010; J7120; Q9966

== ENCOUNTER 2018-11-27 11:54 | Outpatient (CLI) | payer MEDICARE, BC | END 2018-11-27 11:55 | disposition home or self-care (01) | LOC: RAD 11:54 ==